=== PATIENT | female | born 1940 | race Hispanic/Latino ===

== ENCOUNTER 2017-11-10 19:44 | Inpatient (IN) | payer MEDICARE, MEDICAID ==
[2017-11-10 20:43] LABS: ALT (SGPT) 62 U/L (8-55); AST (SGOT) 120 U/L (5-34); Alkaline Phosphatase 147 U/L (40-150); Anion Gap 10 mmol/L (10-20); BUN (Urea Nitrogen) 16 mg/dL (9.8-20.1); Bilirubin, Total 0.9 mg/dL (0.2-1.2); Calc. Creatinine Clearance 0 mL/min (70-130); Calcium 8.6 mg/dL (7.8-10.44); Carbon Dioxide 22 mmol/L (23-31); Chloride 112 mmol/L (98-107); Estimated GFR-MDRD 47; Globulin 4.5 g/dL (2.4-3.5); Glucose 106 mg/dL (83-110); Potassium 4.4 mmol/L (3.5-5.1); Protein, Total 7.5 g/dL (6.0-8.3); Sodium 140 mmol/L (136-145)
[2017-11-10 20:57] LABS: #Monocytes 0.2 thou/uL (0.11-0.59); #Neutrophils 2.2 thou/uL (1.40-6.50); %Basophils 1.1 % (0.0-1.0); %Eosinophils 1.1 % (0.0-10.0); %Lymphocytes 27.3 % (21.0-51.0); %Monocytes 6.6 % (0.0-10.0); Hemoglobin 12.7 g/dL (12.0-16.0); Hypochromia SLIGHT = 6-15 cells (100X) (0-5/hpf); MDiff Complete? YES; Mean Corpuscular HGB CONC 33.3 g/dL (32.0-36.0); Mean Corpuscular Hemoglobin 28.7 pg (27.0-31.0); Mean Corpuscular Volume 86.2 fL (78.0-98.0); Mean Platelet Volume 9.7 fL (7.4-10.4); PLT Morphology Comment Appears Decreased; Platelet Count 78 thou/uL (130-400); Red Blood Cell (RBC) Count 4.44 mill/uL (4.20-5.40); Target Cells SLIGHT = 2-5 cells (100X) (0-1/hpf); White Blood Cell (WBC) Count 3.5 thou/uL (4.8-10.8)
[2017-11-10 21:21] LABS: Bilirubin Small (Negative); Blood, Urine Large (Negative); Clarity CLOUDY (Clear); Glucose, Urine (Dipstick) Negative (Negative); Leukocyte Large (Negative); Nitrite Negative (Negative); Protein, Urine (Dipstick) 30 mg/dL (Neg-Trace); Specific Gravity, Urine 1.025 (1.002-1.036); pH, Urine 5.5 (5.0-9.0)
[2017-11-10 21:23] LABS: Bacteria/HPF None Seen HPF (None Seen); Hyaline Casts/LPF 7-10 HYALINE CAST LPF (0-3 Hyaline); Pathc Cast-AUWi Flag 1.01 (0-2.49); Squamous Epithelial 0-3 HPF (0-3); WBC/HPF 21-50 HPF (0-3)
[2017-11-10 21:24] LABS: Yeast-AUWi Flag 45.7 (0-25.0)
[2017-11-10 21:32] LABS: Renal Epithelial 0-3 HPF (0-3)
[2017-11-10] MEDS ORDERED: Loperamide HCl 2 MG CAP ONE (21:45)
[2017-11-10] MEDS ORDERED: Ciprofloxacin 500 MG TAB ONE (22:20)
--- NOTE | 2017-11-10 22:21 | CT ---
CT ABDOMEN WITH CONTRAST CT PELVIS WITH CONTRAST: DATE: 11/10/17 TIME: 9:18 p.m. HISTORY: 77-year-old female with upper abdominal pain and diarrhea. COMPARISON: None. TECHNIQUE: IV injection of iodinated contrast media: Isovue Oral contrast media: Not administered. FINDINGS: Sternotomy wires. Pacemaker leads in the heart. Small left pleural effusion. Splenomegaly. Mildly nod ular margins of the liver, suspicious for cirrhosis. Moderate amount of free fluid around the liver, and small amounts in the mesentery around the spleen. Moderate amount of free fluid in the bilateral paracolic gutters. Large amount of free fluid within the pelvic cavity obscuring the urinary bladder. The free fluid makes it difficult to evaluate for acute colonic diverticulitis. No small bowel dilat ion. Edema in the subcutaneous fat of the flanks and surrounding the pelvis. Heavy atherosclerotic ca lcification of nonaneurysmal abdominal aorta and its branches, including iliac arteries, superior mes enteric artery and splenic artery. Diffusely mildly heterogeneous pattern of liver parenchyma, probab ly reflecting cirrhosis. No hydronephrosis. No pancreatic mass identified. No adrenal mass. An approx imately 1.4 cm fluid low attenuation lesion occupying a cortical defect at the anterior aspect of the right renal lower pole cortex. This may be part of the ascites occupying a focal renal cortical scar . The other possibility is that this could be a renal cyst. IMPRESSION: 1. Evidence for hepatic cirrhosis, with moderate ascites and splenomegaly. 2. Small left pleural effusion. 3. Atherosclerosis of abdominal aorta and its branches. 4. Anasarca. RAMOS Gutierrez POS: JAGDISH
[2017-11-10] MEDS ORDERED: Nitrofurantoin Monohyd/M-Cryst 100 MG CAP PO SCH (22:30)
[2017-11-10] MEDS ORDERED: cefTRIAXone\\ROCEPHIN 1 GM VIAL ONE (23:25)
[2017-11-11] MEDS ORDERED: Acetaminophen 325 MG TAB PO PRN (00:20)
[2017-11-11] MEDS ORDERED: Ondansetron HCl/PF 4 MG/2 ML Vial IVP PRN (00:20)
[2017-11-11 00:28] LABS: Lactic Acid 1.3 mmol/L (0.5-2.2)
[2017-11-11] MEDS ORDERED: Sodium Chloride 0.9% 1,000 ML IV SCH (00:30)
[2017-11-11] MEDS: metroNIDAZOLE 500 MG in Premix Bag 1 BAG IVPB SCH ×3 (01:50→20:01)
[2017-11-11 02:21] VITALS: BMI 21.2
[2017-11-11 05:20] LABS: #Lymphocytes 1.2 thou/uL (1.20-3.40); #Monocytes 0.2 thou/uL (0.11-0.59); #Neutrophils 1.8 thou/uL (1.40-6.50); %Basophils 0.7 % (0.0-1.0); %Eosinophils 1.3 % (0.0-10.0); %Lymphocytes 37.9 % (21.0-51.0); %Monocytes 6.5 % (0.0-10.0); %Neutrophils 53.6 % (42.0-75.0); Hemoglobin 12.2 g/dL (12.0-16.0); Mean Corpuscular HGB CONC 32.7 g/dL (32.0-36.0); Mean Corpuscular Hemoglobin 28.8 pg (27.0-31.0); Mean Platelet Volume 8.8 fL (7.4-10.4); Platelet Count 64 thou/uL (130-400); RBC Distribution Width 22.7 % (11.5-14.5); Red Blood Cell (RBC) Count 4.24 mill/uL (4.20-5.40); White Blood Cell (WBC) Count 3.3 thou/uL (4.8-10.8)
[2017-11-11 05:38] LABS: Anion Gap 12 mmol/L (10-20); BUN (Urea Nitrogen) 13 mg/dL (9.8-20.1); Calc. Creatinine Clearance 52 mL/min (70-130); Calcium 7.9 mg/dL (7.8-10.44); Carbon Dioxide 16 mmol/L (23-31); Chloride 116 mmol/L (98-107); Estimated GFR-MDRD 63; Glucose 77 mg/dL (83-110); Potassium 3.8 mmol/L (3.5-5.1); Sodium 140 mmol/L (136-145)
--- NOTE | 2017-11-11 06:28 | HP ---
PRIMARY CARE PHYSICIAN: The patient has no primary care doctor. TIME OF EVALUATION: Around 2:00 a.m. Time of Evaluation: 02:00 am CHIEF COMPLAINT: Severe diarrhea for 2 weeks. CODE STATUS: Full code. HISTORY OF PRESENT ILLNESS: This is a 77-year-old female with past medical history of liver cirrhosis, also reportedly congestive heart failure. The patient came to the hospital after having severe diarrhea that has been going on for at least 2 weeks, no clear triggers,no alleviating factors, no fevers, no chills, symptoms were reported as severe. In the ER, the patient received IV fluids, given persistent tachycardia and blood pressure on the low side, with recovery of the blood pressure. The patient remained tachycardic, has had reported some shortness of breath, we are going to stop the fluids for now, will monitor, she is tolerating room air when sitting up. The patient may be third spacing, may benefit from some albumin during the treatment of her conditions. The patient will need to find the right balance between dehydration from the diarrhea and cirrhosis of the liver with fluid retention and 3rd spacing. REVIEW OF SYSTEMS: The patient has no fever, chills, generalized weakness. RESPIRATORY: The patient reported no cough, sputum production, shortness of breath. CARDIOVASCULAR: No chest pain, no palpitations. The patient did report some shortness of breath after initial hydration. GASTROINTESTINAL: No nausea, no vomiting. The patient reported profuse diarrhea for 2 weeks, abdominal pain. She denies dizziness, headache, feeling lightheaded. GENITOURINARY: No burning with urination. EXTREMITIES: The patient has 4+ edema. All other systems were reviewed and were negative except for the findings mentioned above. PAST MEDICAL HISTORY: Patient has a history of cirrhosis of the liver, pacemaker, history of pancreatic mass, history of congestive heart failure, history of hypertension. PAST SURGICAL HISTORY: Open heart surgery. PSYCHIATRIC HISTORY: No previous psychiatric history. FAMILY HISTORY: Reported negative. SOCIAL HISTORY: The patient is a former tobacco user, smokes cigarettes, has quit for more than 10 years. ALLERGIES: No known drug allergies report. MEDICATIONS: Pantoprazole 40 mg daily, Lasix 40 mg daily, potassium chloride 20 mEq daily, Advair Diskus 215/50 mcg, warfarin 4 mg 1 tablet orally once a day. PHYSICAL EXAMINATION: VITAL SIGNS: On presentation, blood pressure was initially on the low side, after hydration blood pressure has been consistently in the 100s, the heart rate has remained in 130s and 120s, respiratory rate has been 18-20, saturation 97 on room air. GENERAL APPEARANCE: The patient is alert, oriented, not in acute distress. HEENT: Eyes; normal conjunctivae. Moist oral mucosa. Anicteric. NECK: No JVD. RESPIRATORY: Bilateral air entry, no rales, no wheezing, symmetric expansion. CARDIOVASCULAR: The patient is tachycardic, sinus tachycardia, no murmurs, no gallop, significant bilateral edema 4+. ABDOMEN: Soft, normal bowel sounds, seems to be very distended. MUSCULOSKELETAL: Baseline normal function and strength. No tenderness. SKIN: Warm and intact. No pallor, no rash, no redness. NEUROLOGIC: Baseline sensorium, no evidence of any new focal weakness. PSYCHIATRIC: Mood is appropriate. No anxiety. RADIOLOGY: Abdominal pelvis CT scan with contrast was negative. sign of hepatic cirrhosis with splenomegaly. There are some findings for left-sided pleural effusion. LABORATORY DATA: Labs were reviewed. White count 3.3, hemoglobin 12.2, MCV 88 , platelet count 64. Sodium 140, potassium 3.8, chloride 116, carbon dioxide was 16, anion gap was 12, BUN 13, creatinine 0.8, GFR 63. Lactic acid was 1.3. LFTs: AST was 120, ALT 62, albumin 3.0, globulin 4.5, albumin globulin ratio 0.7. Urine was done. The patient has a positive urine with white count 21-50. ASSESSMENT AND PLAN: 1. Urinary tract infection, positive urinalysis. The patient has been started on Rocephin, this could be the reason why the patient remains tachycardic. The patient has a problem with hydration for infection due to underlying congestive heart failure, during early childhood coordinator the patient was complaining of shortness of breath, therefore fluids have been held for now, she is making urine, patient is also third spacing likely due to low albumin, we will try to find appropriate fluid balance and infection on top of underlying comorbidities. 2. Pancytopenia with white count 3.3, platelet count 64, this could be secondary to underlying liver cirrhosis, also could be related to underlying infection. We will monitor, we will treat accordingly. The patient is started on antibiotics. 3. Possible Acute gastroenteritis, unclear etiology, the patient has been started on Rocephin plus [place], stool cultures to be sent and followed for further treatment. 4. Reportedly, the patient has a history of congestive heart failure, we will do echo in the morning, we will try to adjust fluid balance better as explained above. Reconcile home medication once updated. 5. Sinus tachycardia, likely secondary to multiple factors including congestive heart failure, including sepsis. We will need permissive tachycardia for possibility of sepsis. 6. Deep venous thrombosis prophylaxis. 7. Cirrhosis of the liver, seems to be compensated, might need GI to assist the patient with getting fluid from peritoneal cavity. MTDD
--- NOTE | 2017-11-11 08:13 | RAD ---
SINGLE VIEW CHEST: Date: 11/11/17 COMPARISON: 11/19/11. HISTORY: Cough and cold-like symptoms. FINDINGS: Single view of the chest shows an enlarged but stable cardiomediastinal silhouette. The patient is st atus post sternotomy. Pacemaker is unchanged in position. Increased interstitial lung markings are pr esent. There is a veil-like opacity in the left thorax which may represent a small left pleural effus ion. IMPRESSION: Cardiomegaly and small left pleural effusion. POS: JAGDISH
--- NOTE | 2017-11-11 11:40 | PDOC.PN ---
- Subjective Encounter Start Date: 11/11/17 Encounter Start Time: 11:37 Ms. Choe was seen today in follow-up. She says she is feeling a little better today. She has not had any diarrhea this morning. She has tolerating some food without difficulty. she is also breathing a little better as well. - Objective Resuscitation Status: Resuscitation Status FULL:Full Resuscitation MAR Reviewed: Yes Vital Signs & Weight: Vital Signs (12 hours) Temp Pulse Resp BP BP Pulse Ox 11/11/17 08:00 97.9 F 78 12 11/11/17 07:50 97.9 F 78 12 130/55 L 100 11/11/17 03:37 98.1 F 100 18 118/56 L 97 11/11/17 00:15 98.1 F 111 H 16 126/77 99 Weight Weight 131 lb 14.4 oz I&O: 11/10/17 11/11/17 11/12/17 06:59 06:59 06:59 Intake Total 250 Output Total 300 Balance -50 Result Diagrams: 11/11/17 04:46 11/11/17 04:46 Phys Exam - Physical Examination HEENT: PERRLA + rales bilaterally Cardiovascular: RRR, no significant murmur, no rub Gastrointestinal: soft, non-tender, positive bowel sounds Musculoskeletal: edema present 2+ pitting edema- bilaterally Neurological: non-focal Dx/Plan (1) Cirrhosis Code(s): K74.60 - UNSPECIFIED CIRRHOSIS OF LIVER Status: Acute (2) Gastroenteritis presumed infectious Code(s): K52.9 - NONINFECTIVE GASTROENTERITIS AND COLITIS, UNSPECIFIED Status : Acute (3) Hypertension Code(s): I10 - ESSENTIAL (PRIMARY) HYPERTENSION Status: Acute (4) CHF (congestive heart failure) Code(s): I50.9 - HEART FAILURE, UNSPECIFIED Status: Acute - Plan * Gastroenteritis- she says her symptoms are improved this morning * She has tolerated a solid diet this morning * She admits to being weak, even prior to coming to the hospital, and is moving her to stay with her son. She has difficulty walking- will therefore consult Case management for Home health and PT/OT * She appears a bit volume overloaded, possibly from the IV fluids overnight- will give a dose of Lasix * She likely can be discharged home later this afternoon .
[2017-11-11] MEDS ORDERED: Furosemide 20 MG TAB PO SCH (11:45)
--- NOTE | 2017-11-11 14:36 | PQF ---
CLINICAL DOCUMENTATION IMPROVEMENT CLARIFICATION FORM: ICD-10 Updated PLEASE DO AN ADDENDUM TO THE PROGRESS NOTE WITH ANY DOCUMENTATION UPDATES OR ADDITIONS AND CARRY THROUGH TO DC SUMMARY. THANK YOU. DATE: 11/11/17 ATTN: Dr. Milton Please exercise your independent, professional judgment in responding to the clarification form. Clinical indicators are provided on the bottom of this form for your review Please check appropriate box(s): HEART FAILURE: A. TYPE: [ ] Systolic / HFrEF [ X ] Diastolic / HFpEF [ ] Combined Systolic / Diastolic [ ] Other diagnosis [ ] Unable to determine In addition, please specify: Present on Admission (POA): [ X ] Yes [ ] No [ ] Unable to determine For continuity of documentation, please document condition throughout progress notes and discharge summary. Thank You. CLINICAL INDICATORS - SIGNS / SYMPTOMS / LABS H&P: SIGNIFICANT BILATERAL EDEMA 4+ ABD PELVIS CT SCAN. LEFT-SIDED PLEURAL EFFUSION. PN 11/11: CONGESTIVE HEART FAILURE. ACUTE SHE APPEARS A BIT VOLUME OVERLOADED, POSSIBLY FROM THE IV FLUIDS OVERNIGHT - WILL GIVE A DOSE OF LASIX RISKS: H&P 11/10: HX OF CIRRHOSIS OF THE LIVER, PACEMAKER, HX OF CHF, HTN. OPEN HEART SURGERY TREATMENT: TELEMETRY SERVICE CPOE 11/11: LASIX 20 MG PO NOW Patient's records from [facility] in [place] were obtained, and she had Echo on August 2017 and EF was 50% cocentric LVH Thank you, Shanti (This form is maintained as a part of the permanent medical record) 2015 [employer]. All Rights Reserved Shanti Uribe RN, BSN [email or web address] Office: [phone] [facility] CENTERFiona
--- NOTE | 2017-11-11 18:29 | PDOC.EVN ---
Event Note - Event Note Event Note: Will Hold discharge. They patient has been taking coumadin in the past, and not sure what her PT/ INR is, and why she takes it. She also was recently diagnosed with Cirrhosis, and she may already be [id number]. Will check her INR tonight, and obtain her medical records. Hopefully home tomorrow.
[2017-11-11 19:20] LABS: INR-International Normal Ratio 1.3
--- NOTE | 2017-11-12 05:38 | DIS ---
PRIMARY CARE PHYSICIAN: The patient does not have a primary care physician. DATE OF ADMISSION: 11/10/2017 DATE OF DISCHARGE: 11/11/2017 DISCHARGE DISPOSITION: Home. PRIMARY DISCHARGE DIAGNOSES: 1. Gastroenteritis. 2. History of cirrhosis. 3. History of congestive heart failure, unknown type. 4. Hypertension. 5. Pancreatic mass. DISCHARGE MEDICATIONS: Include the same as that on admission and include Coumadin 4 mg daily, K-Dur 20 mEq daily, Protonix 40 mg daily, Nitrostat 0.4 mg daily, multivitamin once a day, lactobacillus ta blet daily, vitamin D 2000 units daily, salmeterol Advair inhaler. Please note that we only got the names and doses of her medications right at the time that she was being discharged and her symptoms h ad completely resolved. CODE STATUS: Full code. ALLERGIES: No known drug allergies. HOSPITAL COURSE: Ms. Choe is a pleasant 77-year-old female who came to the emergency room with complaints of nausea, vomiting and diarrhea. Her symptoms had actually been several days prior to a dmission. She was placed in observation and started on gentle IV hydration and given Imodium. The when I saw her, her symptoms had completely resolved. She was feeling much better, tole rating p.o. and as such is stable for discharge home. At the time of discharge, we found the the nam es and doses of her medications and therefore there will be no change in her medications. She will n eed to establish a primary care physician in the area and will need to have her PT and INR checked as soon as possible, hopefully, within the next 1-2 days as it we were unaware that she was on Coumadin until the time of the discharge.
[2017-11-12 06:22] LABS: INR-International Normal Ratio 1.4; Prothrombin Time 17.9 SEC (12.0-14.7)
[2017-11-12 08:24] VITALS: TEMP 98.1
--- NOTE | 2017-11-12 12:02 | PDOC.PN ---
- Subjective Encounter Start Date: 11/12/17 Encounter Start Time: 12:00 Ms. Choe was seen today in [facility]. She says she feel better today. She has not had any diarrhea since admission. - Objective Resuscitation Status: Resuscitation Status FULL:Full Resuscitation MAR Reviewed: Yes Vital Signs & Weight: Vital Signs (12 hours) Temp Pulse Resp BP BP Pulse Ox 11/12/17 08:18 98.1 F 71 12 141/61 H 11/12/17 08:00 98.1 F 71 12 99 11/12/17 03:32 97.7 F 65 17 117/56 L 98 Weight Admit Weight 131 lb 14.4 oz Weight 131 lb 14.4 oz I&O: 11/11/17 11/12/17 11/13/17 06:59 06:59 06:59 Intake Total 250 640 Output Total 300 600 Balance -50 40 Result Diagrams: 11/11/17 04:46 11/11/17 04:46 Phys Exam - Physical Examination HEENT: PERRLA Respiratory: no wheezing, no rales, no rhonchi, clear to auscultation bilateral Cardiovascular: RRR, no significant murmur, no rub Gastrointestinal: soft, non-tender, positive bowel sounds Musculoskeletal: no edema Dx/Plan (1) Cirrhosis Code(s): K74.60 - UNSPECIFIED CIRRHOSIS OF LIVER Status: Acute (2) Gastroenteritis presumed infectious Code(s): K52.9 - NONINFECTIVE GASTROENTERITIS AND COLITIS, UNSPECIFIED Status : Acute (3) Hypertension Code(s): I10 - ESSENTIAL (PRIMARY) HYPERTENSION Status: Acute (4) CHF (congestive heart failure) Code(s): I50.9 - HEART FAILURE, UNSPECIFIED Status: Acute - Plan * Diarrhea- likely viral gastroenteritis- resolved * CHF- ? type- compensated * Coumadin use- her INR was 1.4 today. I suspect she is taking this due to AFIB which she has been in and out of since her admission, She has had some elevation in her heart rate- will add Cadizem * Arrangements are being made for her to be seen at the [facility] to check her PT/ INR on this coming Thursday * Hopefully home this evening, if her heart rate improved
[2017-11-12 14:10] VITALS: BP 112/66
--- NOTE | 2017-11-13 03:03 | DIS ---
ADDENDUM: The patient's discharge was held yesterday after was discovered that she was on Coumadin, we also wan attila to check her INR level prior to discharge and get her records from her previous hospital and her previous physician. The patient's INR level was 1.3 and at 1.4 on the time of discharge. She report s that she had stopped taking Coumadin. The records were obtained from the [facility] in [facility]. The patient is on Coumadin for chronic atrial fibrillation. She was recently hospitalized there in August of this year for pneumonia. At that time, she was temporar danelle taken off Coumadin as she was on a macrolide antibiotic for the pneumonia. restart the Cou madin. She was also on amiodarone for her atrial fibrillation, which she is not taking. She tells m e she stopped taking it herself because it was making her nauseated. Also, in review of her records, she had an echocardiogram done in 08/2017 during that hospitalization and at that time, her ejection fraction was 50%. 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 The patient wa s also known to have chronic kidney disease stage 3, and had been on Singulair and BuSpar as well as Lipitor and amlodipine, all of which she is no longer taking. The patient was set up to see a physic bennie at the [facility] here until she can see Dr. Diaz who she plans to see in about 2 weeks . On Thursday, she will have the PT/INR checked. We will not place her back on amiodarone due to side effects. She was given Cardizem here with good response with her heart rate, but she says that she started feeling a fullness in her throat. For this reason, we will not put her on Cardizem and have her to monitor her heart rate at home and we will defer this to be dealt with on her followup visit.
== END 2017-11-12 19:10 | disposition home or self-care (01) | DRG 391 ==
LOC: ERS 19:44 → 2NO 23:30
PROVIDERS: ADMIT Hospitalist; ATTEND Hospitalist
DX: A08.4 Viral intestinal infection, unspecified (principal); I50.31 Acute diastolic (congestive) heart failure; D61.818 Other pancytopenia; I13.0 Hypertensive heart and chronic kidney disease with heart failure and stage 1 through stage 4 chronic kidney disease, or unspecified chronic kidney disease; N18.3 Chronic kidney disease, stage 3 (moderate); K74.60 Unspecified cirrhosis of liver; I48.2 Chronic atrial fibrillation; E86.0 Dehydration; K86.9 Disease of pancreas, unspecified; Z87.891 Personal history of nicotine dependence; Z79.01 Long term (current) use of anticoagulants; Z79.899 Other long term (current) drug therapy; Z95.0 Presence of cardiac pacemaker
CPT/HCPCS: 36415; 71045; 74177; 80048; 80053; 81003; 81015; 83605; 85025; 85610; 93005; 96361; 96365; A4216; G8978-GP-CL; G8979-GP-CK; J0696

== ENCOUNTER 2017-12-18 07:10 | Day surgery (SDC) | payer MEDICARE, MEDICAID ==
[2017-12-17 09:40] VITALS: BMI 20.3
[~2017-12-18 07:10] MED LIST: Prevnar 13-Val Conj/PF 0.5 ML SYRINGE IM ONE
[2017-12-18 07:59] LABS: #Basophils 0.1 thou/uL (0.0-0.2); #Lymphocytes 0.8 thou/uL (1.20-3.40); #Monocytes 0.2 thou/uL (0.11-0.59); #Neutrophils 1.3 thou/uL (1.40-6.50); %Basophils 2.9 % (0.0-1.0); %Eosinophils 1.6 % (0.0-10.0); %Lymphocytes 33.4 % (21.0-51.0); %Monocytes 6.7 % (0.0-10.0); %Neutrophils 55.5 % (42.0-75.0); Hemoglobin 12.3 g/dL (12.0-16.0); Mean Corpuscular Hemoglobin 30.1 pg (27.0-31.0); Mean Corpuscular Volume 91.4 fL (78.0-98.0); Mean Platelet Volume 9.7 fL (7.4-10.4); Platelet Count 55 thou/uL (130-400); Red Blood Cell (RBC) Count 4.09 mill/uL (4.20-5.40); White Blood Cell (WBC) Count 2.3 thou/uL (4.8-10.8)
[2017-12-18 08:06] LABS: INR-International Normal Ratio 1.5; Prothrombin Time 17.8 SEC (12.0-14.7)
[2017-12-18 08:07] LABS: PTT 44.3 SEC (22.9-36.1)
[2017-12-18 11:41] VITALS: BP 115/59; TEMP 97.5
[2017-12-18 11:42] LABS: BF Color Red; Body Fluid Source Ascites Body Fluid; Clarity Clear (Clear); RBC Background Count 0.001; Tube # EDTA
[2017-12-18 11:43] LABS: BF WBC/Nonhematics Ct. - Manua 16 /cumm; RBC Count-Automated 14000 /cumm
--- NOTE | 2017-12-18 11:44 | ULT ---
ULTRASOUND GUIDED PARACENTESIS: HISTORY: Ascites. COMPARISON: CT abdomen and pelvis 11/10/17. FINDINGS: The patient was brought to the ultrasound suite. All questions were answered. Informed consent was already obtained. Timeout performed. The patient's left lower quadrant was prepped and draped in normal sterile fashion. Adequate anesthe cristal was obtained with Lidocaine. A small dermatotomy was made. Access was obtained using a 5 Alban[place] Yueh needle. 1,750 mL of straw-c olored fluid was removed. The patient tolerated the procedure well without complication. IMPRESSION: Technically successful ultrasound-guided paracentesis. POS: [facility]
[2017-12-18 12:24] LABS: BF Segmented Neutrophils 2 %; Cell Count Non Hematic 84 %; Lymphocytes 14 %
== END 2017-12-18 09:30 | disposition home or self-care (01) ==
LOC: ULT 07:10
PROVIDERS: ATTEND Internal Medicine
PROC: 0W9G3ZX Drainage of Peritoneal Cavity, Percutaneous Approach, Diagnostic (ICD-10-PCS; principal; 2017-12-18)
DX: R18.8 Other ascites (principal); K74.60 Unspecified cirrhosis of liver; I10 Essential (primary) hypertension; Z79.01 Long term (current) use of anticoagulants; Z79.899 Other long term (current) drug therapy; Z95.0 Presence of cardiac pacemaker
CPT/HCPCS: 36415; 49083; 82040; 82042; 84157; 85025; 85060; 85610; 85730; 87070; 87205; 89051